=== PATIENT | female | born 1945 | race American Indian/Alaskan Native ===

== ENCOUNTER 2016-11-01 06:30 | Day surgery (SDC) | payer MEDICARE ==
[2016-11-01 07:09] VITALS: BMI 34.9
[2016-11-01] MEDS ORDERED: Lactated Ringer's 500 ML IV ONE ×2 (08:12)
[2016-11-01] MEDS ORDERED: Etomidate 20 mg/10ml Inj IV ONE (08:14)
--- NOTE | 2016-11-01 08:15 | CP.SDSHP ---
Same Day Surgery H & P - History Proposed Procedure: EGD Pre-Op Diagnosis: SEE NOTES - Previous Medical/Surgical History Cardiac: Hypertension Pulmonary: Asthma Endocrine/Metabolic: Diabetes, Other Misc: Other Pain: 4.Moderate Pain - Allergies Allergies: Allergies No Known Allergies Allergy (Verified 11/01/16 07:03) - Physical Exam General Appearance: N Vital Signs: Vital Signs 11/01/16 07:09 Temperature 97 F L Pulse Rate 66 Respiratory 19 Rate Blood Pressure 125/52 L O2 Sat by Pulse 97 Oximetry Mental Status: Alert & Oriented x3 Neuro: WNL Heart: Other Lungs: Other GI: Other - {Optional Preform as Required} Breast: WNL Abdomen: Other Rectal: Other Integument: WNL : WNL Ortho: Other ENT: WNL - Impression Pt. Evaluated Today:Candidate for Anesthesia & Procedure: Yes - Date & Time Time: 08:15 Short Stay Discharge - Short Stay Discharge Admitting Diagnosis/Reason for Visit: DYSPEPSIA Disposition: HOME/ ROUTINE
[2016-11-01] MEDS ORDERED: Pantoprazole 40 mg EC Tab PO STA (08:16)
[2016-11-01 08:38] VITALS: TEMP 97.1
[2016-11-01 10:02] VITALS: BP 135/59; PULSE 64; RESP 12; O2SAT 98
== END 2016-11-01 09:25 | disposition home or self-care (01) ==
LOC: C.ENDO 06:30
PROVIDERS: ATTEND Specialist
DX: K20.9 Esophagitis, unspecified (principal); K44.9 Diaphragmatic hernia without obstruction or gangrene; K29.70 Gastritis, unspecified, without bleeding
CPT/HCPCS: 43239; 82948; 88305; 88342; J2001; J7120

== ENCOUNTER 2017-02-09 08:28 | Day surgery (SDC) | payer MEDICARE ==
[2017-02-09 09:14] VITALS: RESP 18; O2SAT 100
[2017-02-09] MEDS ORDERED: Midazolam 2 MG/2 ML VIAL ONE (10:57)
[2017-02-09] MEDS ORDERED: Propofol 10 mg/ml Inj (20 ML) ONE (11:11)
--- NOTE | 2017-02-09 11:39 | CP.SDSHP ---
Same Day Surgery H & P - History Proposed Procedure: CT guided lung nodule biopsy Pre-Op Diagnosis: Right lung nodule - Allergies Allergies: Allergies No Known Allergies Allergy (Verified 02/03/17 09:41) - Physical Exam Vital Signs: Vital Signs 02/09/17 09:01 Temperature 98 F Pulse Rate 86 Respiratory 18 Rate Blood Pressure 174/65 H O2 Sat by Pulse 100 Oximetry Mental Status: Alert & Oriented x3 Neuro: WNL Heart: WNL Lungs: WNL - Impression Impression: CT guided right lung nodule biopsy. Informed consent obtained. Pt. Evaluated Today:Candidate for Anesthesia & Procedure: Yes (ASA 2 Malampati 3) - Date & Time Date: 02/09/17 Time: 11:00 Short Stay Discharge - Short Stay Discharge Admitting Diagnosis/Reason for Visit: LUNG NODULE
--- NOTE | 2017-02-09 11:41 | PCM.SURG1 ---
Surgeon's Initial Post Op Note - Surgeon's Notes Surgeon: Dima Fajardo MD Building Manager: NONE Type of Anesthesia: IV Sedation Pre-Operative Diagnosis: Lung nodule Operative Findings: 7 mm right lung nodule Post-Operative Diagnosis: Lung nodule Operation Performed: CT guided right lung nodule Specimen/Specimens Removed: 20 gauge core 2 Estimated Blood Loss: EBL {In ML}: 0 Blood Products Given: N/A Drains Used: No Drains Post-Op Condition: Fair Date of Surgery/Procedure: 02/09/17 Time of Surgery/Procedure: 11:40
[2017-02-09 12:25] VITALS: TEMP 97.2
[2017-02-09 12:30] VITALS: BP 112/60; PULSE 77
--- NOTE | 2017-02-09 14:29 | RAD ---
PROCEDURE: CHEST RADIOGRAPH, 1 VIEW HISTORY: Status post right lung nodule biopsy. COMPARISON: None available. FINDINGS: LUNGS: A 7 millimeter opacity in the right mid lung corresponding to the nodule on CT scan. PLEURA: No pneumothorax or pleural fluid seen. Mild thickening of the left costophrenic angle. CARDIOVASCULAR: Sternotomy wires. Cardiac pericardial silhouette otherwise unremarkable. OSSEOUS STRUCTURES: No significant abnormalities. VISUALIZED UPPER ABDOMEN: Normal. OTHER FINDINGS: None. IMPRESSION: No pneumothorax following right lung nodule biopsy.
--- NOTE | 2017-02-10 11:59 | CT ---
PROCEDURE: Date of procedure: 02/09/2017 Procedure: 1. CT-guided lung mass biopsy, CPT [address] Guidance for biopsy, [id number] Medications: The patient was sedated by anesthesiologist along with physiologic monitoring. HISTORY: Right upper lobe lung nodule TECHNIQUE: Following informed consent, the Pt's chest was marked. The Pt was placed left lateral position on the CT table and procedure time out was performed. A noncontrast CT scan was performed. Noncontrast CT scan confirmed the presence of a peripheral 7 millimeter nodule. A skin localizer was placed on the patient's right flank and a repeat CT scan was performed. The skin was marked, prepped, and draped in the usual sterile fashion. After the skin was anesthetized with lidocaine and the patient sedated by the anesthesiologist, a 20 gauge core needle was advanced percutaneously under direct CT guidance into the mass. Upon confirmation of needle position, two 20-gauge core specimens were obtained and sent for routine pathology. The needle was removed and a xeroform dressing was applied. A post biopsy CT scan showed no pneumothorax. IMPRESSION: CT guided core biopsy right lung nodule.
== END 2017-02-09 14:35 | disposition home or self-care (01) ==
LOC: C.SPRAD 08:28
PROVIDERS: ATTEND Radiology Vascular & Interventional Radiology
DX: R91.1 Solitary pulmonary nodule (principal); J44.9 Chronic obstructive pulmonary disease, unspecified; E11.9 Type 2 diabetes mellitus without complications; E78.5 Hyperlipidemia, unspecified; I10 Essential (primary) hypertension; Z86.73 Personal history of transient ischemic attack (TIA), and cerebral infarction without residual deficits; Z87.891 Personal history of nicotine dependence
CPT/HCPCS: 32405; 71010; 82948; 88305; J2250; J3010

== ENCOUNTER 2017-08-01 06:55 | Day surgery (SDC) | payer MEDICARE ==
--- NOTE | 2017-08-01 09:12 | CP.SDSHP ---
Same Day Surgery H & P - History Proposed Procedure: COLONSCOPY Pre-Op Diagnosis: SEE NOTES - Previous Medical/Surgical History Cardiac: Hypertension, ASHD/CAD Endocrine/Metabolic: Diabetes Misc: Other Pain: 4.Moderate Pain - Allergies Allergies: Allergies No Known Allergies Allergy (Verified 08/01/17 07:35) - Physical Exam General Appearance: N Vital Signs: Vital Signs 08/01/17 08/01/17 07:52 09:03 Temperature 97.7 F 97.7 F Pulse Rate 62 62 Respiratory 19 19 Rate Blood Pressure 144/69 144/69 O2 Sat by Pulse 100 100 Oximetry Mental Status: Alert & Oriented x3 Neuro: WNL Heart: Other Lungs: WNL GI: Other - {Optional Preform as Required} Breast: WNL Abdomen: Other Rectal: Other Integument: WNL : WNL Ortho: Other ENT: WNL - Impression Pt. Evaluated Today:Candidate for Anesthesia & Procedure: Yes - Date & Time Time: 09:12 Short Stay Discharge - Short Stay Discharge Admitting Diagnosis/Reason for Visit: DIARRHEA, UNSPECIFIED Disposition: HOME/ ROUTINE
[2017-08-01] MEDS ORDERED: Belladonna-Phenobarbital PO STA (09:13)
[2017-08-01] MEDS ORDERED: Propofol 10 mg/ml Inj (20 ML) ONE (09:13)
[2017-08-01] MEDS ORDERED: Lactated Ringer's 500 ML IV SCH (09:15)
[2017-08-01 09:52] VITALS: TEMP 97.9
[2017-08-01 13:10] VITALS: RESP 14; O2SAT 100
[2017-08-01 13:14] VITALS: BP 143/63; PULSE 77
== END 2017-08-01 10:45 | disposition home or self-care (01) ==
LOC: C.ENDO 06:55
PROVIDERS: ATTEND Specialist
DX: R19.7 Diarrhea, unspecified (principal); K64.8 Other hemorrhoids; K57.30 Diverticulosis of large intestine without perforation or abscess without bleeding
CPT/HCPCS: 45380; 82948; 88305; 88313; 88342; J2704; J7120

== ENCOUNTER → 2018-09-18 | Outpatient (CLI) | payer MEDICARE | END | disposition home or self-care (01) | LOC: C.DEXAIC 09:41 | DX: Z13.820 Encounter for screening for osteoporosis (principal) ==